=== PATIENT | female | born 1965 | race African-American/Black ===

== ENCOUNTER 2016-10-27 12:10 | Day surgery (SDC) | payer BC ==
[~2016-10-27] VITALS: Ht 167.6 cm; Wt 86.2 kg
[~2016-10-27 12:10] MED LIST: FLONASE ALLERG9.9 ML BOTH NARES; HAIR, SKIN & N1 EAC1 PO; SUDAFED PE PRE1 EAC3 PO
[2016-10-27 12:38] LABS: EOSINOPHIL (%) 1.9 % (0-5); EOSINOPHIL COUNT 0.1 K/uL (0-0.3); HEMATOCRIT 41.9 % (36.0-46.0); IMMATURE GRANULOCYTE (%) 0.2 % (0.0-0.7); INSTRUMENT ABS NEUTROPHIL CT 1.8 K/uL; LYMPHOCYTE COUNT 1.9 K/uL (1.0-2.8); MCHC 33.7 G/DL (30.0-36.0); MONOCYTE (%) 8.7 % (3-12); MONOCYTE COUNT 0.4 K/uL (0-0.8); NEUTROPHIL (%) 43.8 % (45-76); NEUTROPHIL COUNT 1.8 K/uL (1.8-6.4); PLATELET COUNT 215 K/uL (156-360); RBC DIS.WIDTH-CV 12.3 % (11.8-14.6); RBC DIS.WIDTH-SD 39.1 % (39-53); RED BLOOD COUNT 4.87 M/uL (3.80-5.20); WHITE BLOOD COUNT 4.1 K/uL (4.1-10.2)
[2016-10-27 12:46] LABS: PROTHROMBIN TIME 11.3 SEC (10.2-12.9)
[2016-10-27 12:48] LABS: PTT 31.2 SEC (25-37)
[2016-10-27 12:50] LABS: CHLORIDE 107 mEq/L (99-109); SODIUM 145 mEq/L (136-147)
[2016-10-27 12:52] LABS: GLUCOSE 97 mg/dL (70-99)
[2016-10-27 12:53] LABS: ANION GAP 12 MEQ/L (2-14)
[2016-10-27 12:54] LABS: TOTAL BILIRUBIN 0.5 mg/dL (0.0-1.0)
[2016-10-27 12:55] LABS: ALKALINE PHOSPHATASE 59 IU/L (3-129)
[2016-10-27 12:56] LABS: GFR ESTIMATE (CALCULATED) > 59 mL/min/
[2016-10-27 12:57] LABS: UREA NITROGEN (BUN) 9 mg/dL (9-23)
[2016-10-27 13:07] VITALS: BP 155/89
[2016-10-27 13:07] LABS: QUANTITATIVE HCG < 4.0 MIU/ML
[2016-10-27] MEDS ORDERED: NORCO 5/3251 TABLET PO (15:37)
[2016-10-27] MEDS ORDERED: COLACE100 MG PO (15:37)
[2016-10-27 16:38] VITALS: BP 138/62
[2016-10-27 16:40] VITALS: BP 155/97
[2016-10-27 18:48] VITALS: BP 146/77
== END 2016-10-27 18:50 | disposition home or self-care (01) ==
LOC: SDC 12:10
PROVIDERS: Thoracic Surgery (Cardiothoracic Vascular Surgery)
PROC: 0FT44ZZ Resection of Gallbladder, Percutaneous Endoscopic Approach (ICD-10-PCS; principal; 2016-10-27)
DX: K80.10 Calculus of gallbladder with chronic cholecystitis without obstruction (principal); I10 Essential (primary) hypertension; Z82.49 Family history of ischemic heart disease and other diseases of the circulatory system; Z80.8 Family history of malignant neoplasm of other organs or systems
CPT/HCPCS: 80053; 84702; 85025; 85610; 85730; 88304; J0131; J0690; J1100; J1170; J1885; J2250; J2405; J2710; J3010